=== PATIENT | male | born 1985 | race Caucasian/White ===

== ENCOUNTER 2016-10-24 16:31 | Emergency (ER) | payer MEDICARE, MEDICAID ==
[2016-10-24 16:44] VITALS: BP 119/81
--- NOTE | 2016-10-24 17:03 | UC ---
Laceration HPI - HPI Summary HPI Summary: Pt present to [facility] with care give from [facility] home. Pt with MR Holli geronimo assisted with hx. paperwork reviewed. Pt became upset earlier today and punched a glass frame. Pt sustained 2 lacs to right 5th digit. Bleeding controlled. no pain No analgesia given Pt not on anticoagulants. Pt not immunocompromised. RHD no weakness Last Tdap 2013 Pt's medications reviewed at this visit - History Of Current Complaint Chief Complaint: UCUpperExtremity Stated Complaint: RIGHT HAND LACERATION Time Seen by Provider: 10/24/16 17:02 Hx Obtained From: Patient, Family/Elevator Mechanic Laceration Location: Finger Mechanism Of Injury: Sharp Trauma Onset/Duration: Sudden Onset Severity: Mild Pain Intensity: 0 Aggravating Factors: Movement - opens wound on 5th digit - Allergies/Home Medications Allergies/Adverse Reactions: Allergies Allergy/AdvReac Type Severity Reaction Status Date / Time Valproic Acid [From Depakote] AdvReac Intermediate GI Upset Verified 10/24/16 16 :46 Home Medications: Home Medications Acetaminophen TAB* [Tylenol TAB*] 650 mg PO Q4H PRN 10/24/16 [History Confirmed 10/24/16] Cetirizine* [ZyrTEC 10 MG TAB*] 10 mg PO DAILY 10/24/16 [History Confirmed 10/24] Cholecalciferol [Vitamin D] 2,000 unit PO DAILY 10/24/16 [History Confirmed 07/07] Desmopressin Acetate [Ddavp] 0.2 mg PO BID 10/24/16 [History Confirmed 10/24/16] Guaifenesin [Tussin Adult] 200 mg PO Q4H PRN 10/24/16 [History Confirmed ] Propranolol LA CAP* [Inderal LA CAP*] 120 mg PO DAILY 10/24/16 [History Confirmed 10/24/16] PMH/Surg Hx/FS Hx/Imm Hx Previously Healthy: Yes GI/ History: Gastroesophageal Reflux Psychological History: Other - MR Other Psychological History: MR - Surgical History Surgical History: Yes Surgery Procedure, Year, and Place: eye surgery, ear surgery, nose surgery - Family History Known Family History: Positive: Unknown - Social History Occupation: Disabled Lives: [facility] - [facility] Alcohol Use: None Substance Use Type: None Smoking Status (MU): Never Smoked Tobacco Review of Systems Constitutional: Negative Skin: Other - abrasion right 5th digit Eyes: Negative ENT: Negative Respiratory: Negative Cardiovascular: Negative Gastrointestinal: Negative Genitourinary: Negative Motor: Negative Neurovascular: Negative Musculoskeletal: Negative Neurological: Negative Psychological: Negative All Other Systems Reviewed And Are Negative: Yes Physical Exam Triage Information Reviewed: Yes Appearance: Well-Appearing, No Pain Distress, Well-Nourished Vital Signs: Initial Vital Signs Temp 97.3 F 10/24/16 16:36 Pulse 62 10/24/16 16:36 Resp 18 10/24/16 16:36 BP 119/81 10/24/16 16:36 Pulse Ox 96 10/24/16 16:36 Vital Signs Reviewed: Yes Eyes: Positive: Conjunctiva Clear ENT: Positive: Hearing grossly normal Neck: Positive: Supple Respiratory: Positive: No respiratory distress, No accessory muscle use Cardiovascular: Positive: Other: - 2+radial, ulnar CBT < 2 sec Musculoskeletal: Positive: Other: - + flex/ext MCP, IP joint right 5th finger no pain with palpation no laxity with joint stress full flex/ext MCP, IP against resistance without pain full flex/ext wrist, elbow Neurological: Positive: Other: - + sensation throughout right hand Psychological Exam: Normal Psychological: Positive: Other: - baseline per pt Skin: Positive: Other - pt with small abrasions right hand 4th MCP, 5th MCP Pt with 1cm abrasion over right 5th IP joint - wound opens with flexion - no bleeding wound cleansed No joint space visible Laceration Course/Dx - Course/Dx Course Of Treatment: Pt with abrasions right hand s/p punching glass injury. Pt with small, non suturable abrasion dorsum right hand. Pt with 1 wound over IP joint - opens mild with flexion. Pt with MR and concern regarding wound care , and rest. Wound closed with dermabond. placed in splint. tdap is UTD. motrin/apap. wound care, s/s infection reviewed. caregiver comfortable and in agreement with plan - Differential Dx - Laceration/Wound Provider Diagnoses: abrasions to right 5th Discharge - Discharge Plan Condition: Stable Disposition: HOME Patient Education Materials: Skin Adhesive Care (ED) Referrals: Katelin Carrizales MD [Primary Care Provider] - Additional Instructions: - Keep wound clean and dry - Wear splint as much as possible for the next 2-3 days - Okay to take tylenol every 6 hours as needed for pain - monitor your wound for signs of infection - reddness, red streaking, odor, drainage - Contact your doctor or return with any questions or concerns
== END 2016-10-24 17:34 | disposition home or self-care (01) ==
LOC: UCCORT 16:31
DX: S60.416A Abrasion of right little finger, initial encounter (principal); W25.XXXA Contact with sharp glass, initial encounter; Y93.9 Activity, unspecified; Y92.9 Unspecified place or not applicable; K21.9 Gastro-esophageal reflux disease without esophagitis; F79 Unspecified intellectual disabilities
CPT/HCPCS: 12001; 99211; G0463